=== PATIENT | male | born 1965 | race African-American/Black ===

== ENCOUNTER 2016-10-05 11:59 | Inpatient (IN) | payer OTHER ==
[2016-10-05 21:19] VITALS: BMI 22.5
--- NOTE | 2016-10-05 21:27 | HP ---
COWS - Scale Resting Pulse: 0= [place] 80 or Below Sweatin= Chills/Flushing Restless Observation: 1= Difficult to Sit Still Pupil Size: 1= Pupils >than Normal Bone or Joint Aches: 4=Acute Joint/Muscle Pain Runny Nose/ Eye Tearin= Runny Nose/Eyes GI Upset > 30mins: 3= Vomiting/Diarrhea Tremor Observation: 2= Slight Tremor Visible Yawning Observation: 2= >3x During Session Anxiety or Irritability: 1=Feels Anxious/Irritable Goose Flesh Skin: 0=Smooth Skin COWS Score: 17 Admission ROS S - HPI Chief Complaint: C/O HEROIN AND COCAINE DEPENDENCE. SEEKING DETOX TXMENT. Allergies/Adverse Reactions: Allergies Allergy/AdvReac Type Severity Reaction Status Date / Time No Known Allergies Allergy Verified 10/05/16 21:22 History of Present Illness: 51 Y.O. MALE WITH OPIOID AND COCAINE DEPENDENCE ADMITTED FOR DETOX TXMENT. THIS IS CLIENT FIRST TIME HERE. REPORTS LAST DETOX OVER 90 DAYS. LONGEST CLEAN TIME 3 YEARS. Exam Limitations: No Limitations - Ebola screening Have you traveled outside of the country in the last 21 days: No Have you had contact with anyone from an Ebola affected area: No Have you been sick,other than usual withdrawal symptoms: No - Review of Systems Constitutional: Chills, Malaise, Changes in sleep EENT: reports: Nose Congestion, Dental Problems (DENTURES UPPER/LOWER) Respiratory: reports: No Symptoms reported Cardiac: reports: No Symptoms Reported GI: reports: Poor Fluid Intake, Vomiting : reports: No Symptoms Reported Musculoskeletal: reports: Joint Pain Integumentary: reports: No Symptoms Reported Neuro: reports: No Symptoms reported Endocrine: reports: No Symptoms Reported Hematology: reports: No Symptoms Reported Psychiatric: reports: No Sypmtoms Reported Other Systems: Reviewed and Negative Patient History - Patient Medical History Hx Anemia: No Hx Asthma: No Hx Chronic Obstructive Pulmonary Disease (COPD): No Hx Cardiac Disorders: No Hx Congestive Heart Failure: No Hx Hypertension: No Hx Hypercholesterolemia: No Hx Pacemaker: No HX Cerebrovascular Accident: No Hx Seizures: No Hx Dementia: No Hx Diabetes: No Hx Gastrointestinal Disorders: No Hx Liver Disease: No Hx Genitourinary Disorders: No Hx Sexually Transmitted Disorders: No Hx Renal Disease (ESRD): No Hx Thyroid Disease: No Hx Human Immunodeficiency Virus (HIV): No Hx Hepatitis C: No Hx Depression: No (H/O NO MEDS) Hx Suicide Attempt: No Hx Bipolar Disorder: No Hx Schizophrenia: No Other Medical History: DENIES - Patient Surgical History Past Surgical History: No - PPD History Previous Implant?: Yes Documented Results: Negative w/o proof Implanted On Prior [facility] Admission?: No PPD to be Administered?: Yes - Smoking Cessation Smoking history: Current every day smoker Have you smoked in the past 12 months: Yes Aproximately how many cigarettes per day: 10 Cigars Per Day: 0 Hx Chewing Tobacco Use: No Initiated information on smoking cessation: Yes 'Breaking Loose' booklet given: 10/05/16 - Substance & Tx. History Hx Alcohol Use: No Hx Substance Use: Yes Substance Use Type: Cocaine, Heroin Hx Substance Use Treatment: Yes ([facility]) - Substances Abused HEROIN Route: Inhalation Frequency: 3-6 times per week Amount used: 3 BAGS Age of first use: 48 Date of Last Use: 10/05/16 COCAINE Route: Inhalation Frequency: Daily Amount used: 1/2 GM Age of first use: 23 Date of Last Use: 10/04/16 Family Disease History - Family Disease History Family History: Denies Admission Physical Exam [facility] - Vital Signs Vital Signs: Vital Signs - 24 hr 10/05/16 21:17 Temperature 98.1 F Pulse Rate 66 Respiratory 20 Rate Blood Pressure 141/85 - Physical General Appearance: Yes: Appropriately Dressed, Mild Distress, Tremorous, Other (SOILED CLOTHING) HEENTM: Yes: EOMI, Normocephalic, Normal Voice, MICHELET, Pharynx Normal, Rhinorrhea , Other (UPPER/LOWER DENTURES) Respiratory: Yes: Chest Non-Tender, Lungs Clear, Normal Breath Sounds, No Respiratory Distress, No Accessory Muscle Use Neck: Yes: No masses,lesions,Nodules, Supple, Trachea in good position Breast: Yes: Breast Exam Deferred Cardiology: Yes: Regular Rhythm, Regular Rate, S1, S2 Abdominal: Yes: Normal Bowel Sounds, Non Tender, Soft Genitourinary: Yes: Within Normal Limits Back: Yes: Normal Inspection Musculoskeletal: Yes: full range of Motion, Gait Steady Extremities: Yes: Normal Capillary Refill, Normal Range of Motion, Non-Tender, Tremors 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: Yes: 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 intact, Fully Oriented, Alert, Motor Strength 5/5 Integumentary: Yes: Within Normal Limits Lymphatic: Yes: Within Normal Limits - Diagnostic (1) Opioid dependence with withdrawal Current Visit: Yes Status: Chronic (2) Cocaine dependence, uncomplicated Current Visit: Yes Status: Chronic (3) Nicotine dependence Current Visit: Yes Status: Chronic Qualifiers: Nicotine product type: cigarettes Substance use status: uncomplicated Qualified Code(s): F17.210 - Nicotine dependence, cigarettes, uncomplicated Cleared for Admission S - Detox or Rehab [facility] Level of Care: Medically Managed Detox Regimen/Protocol: Methadone Urine Drug Screen - Results Urine Drug Screen Results: REYMUNDO-Cocaine, OPI-Opiates
[2016-10-05] MEDS ORDERED: MAGNESIUM CITRATE 300 ML BOTTLE PO PRN (21:34)
[2016-10-05] MEDS ORDERED: P-EPHED 60MG/TRIPROLIDI 2.5MG TABLET PO PRN (21:34)
[2016-10-05] MEDS ORDERED: MAG HYDROX/AL HYDROX/SIMETH 30 ML UNIT-DOSE CUP PO PRN (21:34)
[2016-10-05] MEDS ORDERED: ACETAMINOPHEN 325 MG TABLET (FP) PO PRN (21:34)
[2016-10-05] MEDS ORDERED: LOPERAMIDE HCL 2 MG CAPSULE PO PRN (21:34)
[2016-10-05] MEDS ORDERED: diphenhydrAMINE HCL 50 MG CAPSULE PO PRN (21:34)
[2016-10-05] MEDS ORDERED: METHADONE HCL 10 MG TABLET (FOR DETOX USE ONLY) PO ONE ×2 (21:34→23:00)
[2016-10-05] MEDS ORDERED: guaiFENesin/D-METHORPHAN HB 10 ML UNIT-DOSE CUPS PO PRN (21:34)
[2016-10-05] MEDS ORDERED: IBUPROFEN 400 MG TABLET (FP) PO PRN (21:34)
[2016-10-05] MEDS ORDERED: MAGNESIUM HYDROX 2400MG/30ML ORAL SUSPENSION 30 ML CUP PO PRN (21:34)
[2016-10-05] MEDS ORDERED: MENTHOL/PHENOL 1 EACH UD MM PRN (21:34)
[2016-10-05] MEDS ORDERED: NICOTINE POLACRILEX 2 MG GUM BC PRN (21:34)
[2016-10-05] MEDS: THIAMINE HCL 100 MG TABLET (FP) PO SCH (22:54)
[2016-10-05] MEDS: diazePAM 5 MG TABLET PO PRN (22:54)
[2016-10-05] MEDS: NICOTINE 14 MG/24 HOURS TOPICAL PATCH TD SCH (22:55)
[2016-10-06] MEDS: diazePAM 5 MG TABLET PO PRN (06:09)
[2016-10-06] MEDS ORDERED: METHADONE HCL 10 MG TABLET (FOR DETOX USE ONLY) PO ONE (10:00)
--- NOTE | 2016-10-06 10:37 | CONSULT ---
[facility] Psychiatric Consult - Data Date of interview: 10/06/16 Admission source: [facility] Identifying data: First admission to [facility] for this 51 y/o AA male seeking detox treatment for heroin and cocaine dependence.Patient is single,a father of two,homeless,unemployed and deprived of financial assistance. Substance Abuse History: - Smoking Cessation. Smoking history: Current every day smoker. Have you smoked in the past 12 months: Yes. Aproximately how many cigarettes per day: 10. Cigars Per Day: 0. Hx Chewing Tobacco Use: No. Initiated information on smoking cessation: Yes. 'Breaking Loose' booklet given : 10/05/16. - Substance & Tx. History. Hx Alcohol Use: No. Hx Substance Use: Yes. Substance Use Type: Cocaine, Heroin. Hx Substance Use Treatment: Yes ( [facility]). - Substances Abused. HEROIN. Route: Inhalation. Frequency : 3-6 times per week. Amount used: 3 BAGS. Age of first use: 48. Date of Last Use: 10/05/16. COCAINE. Route: Inhalation. Frequency: Daily. Amount used: 1/2 GM. Age of first use: 23. Date of Last Use: 10/04/16. Confirmed by patient. Medical History: Patient endorses good general health. Psychiatric History: Patient denies. Physical/Sexual Abuse/Trauma History: Patient denies. Additional Comment: Urine Drug Screen Results: REYMUNDO-Cocaine, OPI-Opiates.Noted. Mental Status Exam - Mental Status Exam Alert and Oriented to: Time, Place, Person Cognitive Function: Grossly Intact Patient Appearance: Disheveled Mood: Withdrawn Affect: Normal Range Patient Behavior: Sedated (light sedation), Fatigued Speech Pattern: Delayed, Slurred Voice Loudness: Moderately Soft/Quiet Thought Process: Goal Oriented Hallucinations: Denies Suicidal Ideation: Denies Homicidal Ideation: Denies Insight/Judgement: Poor Sleep: Well Appetite: Good Muscle strength/Tone: Normal Gait/Station: Normal Psychiatric Findings - Problem List ([place] 1, 2,3) (1) Cocaine dependence, uncomplicated Current Visit: Yes Status: Acute (2) Opioid dependence with withdrawal Current Visit: Yes Status: Acute (3) Nicotine dependence Current Visit: Yes Status: Acute Qualifiers: Nicotine product type: cigarettes Substance use status: uncomplicated Qualified Code(s): F17.210 - Nicotine dependence, cigarettes, uncomplicated - Initial Treatment Plan Initial Treatment Plan: Psychoeducation.Detoxification in progress.Observation.
[2016-10-06 10:42] LABS: MCHC 33.2 g/dl (32.0-35.9); MEAN CELL VOLUME 93.3 fl (80-96); MEAN PLT VOLUME 8.4 fl (7.5-11.1); PLATELET COUNT 305 K/MM3 (134-434); RDW 14.8 % (11.9-15.9); WHITE BLOOD COUNT 8.4 K/mm3 (4.0-10.0)
[2016-10-06] MEDS: NICOTINE 14 MG/24 HOURS TOPICAL PATCH TD SCH (10:50)
[2016-10-06] MEDS: PRENATAL VITAMINS W/ FOLIC ACID TABLET (FP) PO SCH (10:51)
[2016-10-06 10:56] LABS: ALBUMIN 3.3 g/dl (3.4-5.0); BILIRUBIN,TOTAL 0.9 mg/dL (0.2-1.0); COCKROFT - GAULT 56.37; CREATININE 1.4 mg/dL (0.7-1.3); TOT PROT 6.4 g/dl (6.4-8.2)
--- NOTE | 2016-10-06 11:20 | PN ---
S COWS - Scale Resting Pulse: 0= [place] 80 or Below Sweatin= Chills/Flushing Restless Observation: 3= Extraneous Movement Pupil Size: 2= Moderately Dilated Bone or Joint Aches: 2= Severe Diffuse Aches Runny Nose/ Eye Tearin= Nasal Congestion GI Upset > 30mins: 0= None Tremor Observation of Outstretched Hands: 2= Slight Tremor Visible Yawning Observation: 0= None Anxiety or Irritability: 1=Feels Anxious/Irritable Goose Flesh Skin: 0=Smooth Skin COWS Score: 12 BHS Progress Note (SOAP) Subjective: PT IS VERY DROWSY BUT AROUSABLE ON COMMAND. APPEARS VERY TIRED AND STATES "I HAVE NOT BEEN SLEEPING I SHOULD OUTSIDE". BP ELEVATED WITH NO PMHX INDICATED. Objective: 10/06/16 11:20 Laboratory Last Values WBC 8.4 K/mm3 (4.0-10.0) 10/06/16 07:30 RBC 4.97 M/mm3 (4.00-5.60) 10/06/16 07:30 Hgb 15.4 GM/dL (11.7-16.9) 10/06/16 07:30 Hct 46.4 % (35.4-49) 10/06/16 07:30 MCV 93.3 fl (80-96) 10/06/16 07:30 MCHC 33.2 g/dl (32.0-35.9) 10/06/16 07:30 RDW 14.8 % (11.9-15.9) 10/06/16 07:30 Plt Count 305 K/MM3 (134-434) 10/06/16 07:30 MPV 8.4 fl (7.5-11.1) 10/06/16 07:30 Sodium 140 mmol/L (136-145) 10/06/16 07:30 Potassium 4.0 mmol/L (3.5-5.1) 10/06/16 07:30 Chloride 103 mmol/L (98-107) 10/06/16 07:30 Carbon Dioxide 27 mmol/L (21-32) 10/06/16 07:30 Anion Gap 10 (8-16) 10/06/16 07:30 BUN 15 mg/dL (7-18) 10/06/16 07:30 Creatinine 1.4 mg/dL (0.7-1.3) H 10/06/16 07:30 Creat Clearance w eGFR 53.01 (>60) 10/06/16 07:30 Random Glucose 88 mg/dL (74-106) 10/06/16 07:30 Calcium 9.0 mg/dL (8.5-10.1) 10/06/16 07:30 Total Bilirubin 0.9 mg/dL (0.2-1.0) 10/06/16 07:30 AST 19 U/L (15-37) 10/06/16 07:30 ALT 21 U/L (12-78) 10/06/16 07:30 Alkaline Phosphatase 75 U/L (45-117) 10/06/16 07:30 Total Protein 6.4 g/dl (6.4-8.2) 10/06/16 07:30 Albumin 3.3 g/dl (3.4-5.0) L 10/06/16 07:30 OTHER LABS PENDING Assessment: 10/06/16 11:20 WITHDRAWAL SX Plan: CONTINUE DETOX INCREASE PO FLUIDS/ENSURE PLUS PO BID CLONIDINE X 1 MONITOR PT STATUS.
[2016-10-06] MEDS ORDERED: cloNIDine HCL 0.1 MG TABLET PO ONE (11:37)
--- NOTE | 2016-10-06 13:23 | EKG ---
Test Reason : Blood Pressure : / mmHG Vent. Rate : 071 BPM Atrial Rate : 071 BPM P-R Int : 164 ms QRS Dur : 104 ms QT Int : 418 ms P-R-T Axes : 076 078 040 degrees QTc Int : 454 ms NORMAL SINUS RHYTHM BIATRIAL ENLARGEMENT LEFT VENTRICULAR HYPERTROPHY NONSPECIFIC T WAVE ABNORMALITY ABNORMAL ECG NO PREVIOUS ECGS AVAILABLE Confirmed by HAYLEY GONZALES MD ([id number]) on 10/06/2016 1:23:18 PM Referred By: Confirmed By:HAYLEY GONZALES MD
[2016-10-06] MEDS: THIAMINE HCL 100 MG TABLET (FP) PO SCH (22:39)
[2016-10-07] MEDS: diazePAM 5 MG TABLET PO PRN (05:43)
[2016-10-07] MEDS ORDERED: METHADONE HCL 5 MG TABLET (FOR DETOX USE ONLY) PO ONE (10:00)
[2016-10-07] MEDS: PRENATAL VITAMINS W/ FOLIC ACID TABLET (FP) PO SCH (10:26)
[2016-10-07] MEDS: NICOTINE 14 MG/24 HOURS TOPICAL PATCH TD SCH (10:27)
--- NOTE | 2016-10-07 11:33 | PN ---
BHS COWS - Scale Resting Pulse: 0= [place] 80 or Below Sweatin= Chills/Flushing Restless Observation: 3= Extraneous Movement Pupil Size: 2= Moderately Dilated Bone or Joint Aches: 4=Acute Joint/Muscle Pain Runny Nose/ Eye Tearin= Nasal Congestion GI Upset > 30mins: 1= Stomach Cramp Tremor Observation of Outstretched Hands: 1= Tremor [place], Not Seen Yawning Observation: 1= 1-2x During Session Anxiety or Irritability: 2=Irritable/Anxious Goose Flesh Skin: 0=Smooth Skin COWS Score: 16 S Progress Note (SOAP) Subjective: WIDE AWAKE AND ALERT O X 3. EATING BREAKFAST IN BED. ALERT AND INTERACTIVE WITH PEERS TODAY. PT STATES " I DID NOT SLEEP FOR 3 DAYS BEFORE COMING HERE". Objective: 10/07/16 11:31 Vital Signs Temperature 97.5 F L 10/07/16 10:25 Pulse Rate 70 10/07/16 10:25 Respiratory Rate 18 10/07/16 10:25 Blood Pressure 155/98 10/07/16 10:25 O2 Sat by Pulse Oximetry (%) Laboratory Last Values WBC 8.4 K/mm3 (4.0-10.0) 10/06/16 07:30 RBC 4.97 M/mm3 (4.00-5.60) 10/06/16 07:30 Hgb 15.4 GM/dL (11.7-16.9) 10/06/16 07:30 Hct 46.4 % (35.4-49) 10/06/16 07:30 MCV 93.3 fl (80-96) 10/06/16 07:30 MCHC 33.2 g/dl (32.0-35.9) 10/06/16 07:30 RDW 14.8 % (11.9-15.9) 10/06/16 07:30 Plt Count 305 K/MM3 (134-434) 10/06/16 07:30 MPV 8.4 fl (7.5-11.1) 10/06/16 07:30 Sodium 140 mmol/L (136-145) 10/06/16 07:30 Potassium 4.0 mmol/L (3.5-5.1) 10/06/16 07:30 Chloride 103 mmol/L (98-107) 10/06/16 07:30 Carbon Dioxide 27 mmol/L (21-32) 10/06/16 07:30 Anion Gap 10 (8-16) 10/06/16 07:30 BUN 15 mg/dL (7-18) 10/06/16 07:30 Creatinine 1.4 mg/dL (0.7-1.3) H 10/06/16 07:30 Creat Clearance w eGFR 53.01 (>60) 10/06/16 07:30 Random Glucose 88 mg/dL (74-106) 10/06/16 07:30 Calcium 9.0 mg/dL (8.5-10.1) 10/06/16 07:30 Total Bilirubin 0.9 mg/dL (0.2-1.0) 10/06/16 07:30 AST 19 U/L (15-37) 10/06/16 07:30 ALT 21 U/L (12-78) 10/06/16 07:30 Alkaline Phosphatase 75 U/L (45-117) 10/06/16 07:30 Total Protein 6.4 g/dl (6.4-8.2) 10/06/16 07:30 Albumin 3.3 g/dl (3.4-5.0) L 10/06/16 07:30 RPR Titer Nonreactive (NONREACTIVE) 10/06/16 07:30 Hepatitis C Antibody <0.1 s/co ratio (0.0-0.9) 10/06/16 07:30 Assessment: 10/07/16 11:32 WITHDRAWAL SX Plan: CONTINUE DETOX INCREASE PO FLUIDS.
[2016-10-07] MEDS ORDERED: cloNIDine HCL 0.1 MG TABLET PO ONE (11:34)
[2016-10-07] MEDS: THIAMINE HCL 100 MG TABLET (FP) PO SCH (22:58)
[2016-10-07] MEDS: cloNIDine HCL 0.1 MG TABLET PO SCH (22:59)
[2016-10-08] MEDS: diazePAM 5 MG TABLET PO PRN (05:49)
[2016-10-08] MEDS ORDERED: METHADONE HCL 5 MG TABLET (FOR DETOX USE ONLY) PO ONE (10:00)
--- NOTE | 2016-10-08 10:48 | PN ---
BHS Progress Note (SOAP) Subjective: Sweating,interrupted sleep,restless Objective: 10/08/16 10:47 Vital Signs - 8 hr 10/08/16 10/08/16 10/08/16 03:30 06:48 10:46 Temperature 98 F 96.8 F L Pulse Rate 52 L 62 Respiratory 18 18 18 Rate Blood Pressure 134/86 116/79 Laboratory Tests 10/06/16 10/06/16 10/06/16 07:30 07:30 07:30 WBC 8.4 RBC 4.97 Hgb 15.4 Hct 46.4 MCV 93.3 MCHC 33.2 RDW 14.8 Plt Count 305 MPV 8.4 Sodium 140 Potassium 4.0 Chloride 103 Carbon Dioxide 27 Anion Gap 10 BUN 15 Creatinine 1.4 H Creat Clearance w eGFR 53.01 Random Glucose 88 Calcium 9.0 Total Bilirubin 0.9 AST 19 ALT 21 Alkaline Phosphatase 75 Total Protein 6.4 Albumin 3.3 L RPR Titer Hepatitis C Antibody <0.1 10/06/16 07:30 WBC RBC Hgb Hct MCV MCHC RDW Plt Count MPV Sodium Potassium Chloride Carbon Dioxide Anion Gap BUN Creatinine Creat Clearance w eGFR Random Glucose Calcium Total Bilirubin AST ALT Alkaline Phosphatase Total Protein Albumin RPR Titer Nonreactive Hepatitis C Antibody labs noted Assessment: 10/08/16 10:47 Withdrawal sx. Plan: Continue detox
[2016-10-08] MEDS: PRENATAL VITAMINS W/ FOLIC ACID TABLET (FP) PO SCH (10:49)
[2016-10-08] MEDS: cloNIDine HCL 0.1 MG TABLET PO SCH ×2 (10:50→22:52)
[2016-10-08] MEDS: NICOTINE 14 MG/24 HOURS TOPICAL PATCH TD SCH (10:50)
[2016-10-08] MEDS: THIAMINE HCL 100 MG TABLET (FP) PO SCH (22:51)
[2016-10-09] MEDS ORDERED: METHADONE HCL 10 MG TABLET (FOR DETOX USE ONLY) PO ONE (10:00)
[2016-10-09] MEDS: PRENATAL VITAMINS W/ FOLIC ACID TABLET (FP) PO SCH (10:41)
[2016-10-09] MEDS: NICOTINE 14 MG/24 HOURS TOPICAL PATCH TD SCH (10:41)
[2016-10-09] MEDS: cloNIDine HCL 0.1 MG TABLET PO SCH ×3 (10:42→22:47)
--- NOTE | 2016-10-09 18:08 | PN ---
S Progress Note (SOAP) Subjective: Fatigue, Tremors. Objective: PT. A & O X 2 (DISORIENTED ABOUT DAY / DATE). PT. DENIES CHEST PAIN. 10/09/16 18:04 Vital Signs Temperature 98.6 F 10/09/16 11:14 Pulse Rate 61 10/09/16 11:14 Respiratory Rate 20 10/09/16 11:14 Blood Pressure 119/79 10/09/16 11:14 O2 Sat by Pulse Oximetry (%) Laboratory Last Values WBC 8.4 K/mm3 (4.0-10.0) 10/06/16 07:30 RBC 4.97 M/mm3 (4.00-5.60) 10/06/16 07:30 Hgb 15.4 GM/dL (11.7-16.9) 10/06/16 07:30 Hct 46.4 % (35.4-49) 10/06/16 07:30 MCV 93.3 fl (80-96) 10/06/16 07:30 MCHC 33.2 g/dl (32.0-35.9) 10/06/16 07:30 RDW 14.8 % (11.9-15.9) 10/06/16 07:30 Plt Count 305 K/MM3 (134-434) 10/06/16 07:30 MPV 8.4 fl (7.5-11.1) 10/06/16 07:30 Sodium 140 mmol/L (136-145) 10/06/16 07:30 Potassium 4.0 mmol/L (3.5-5.1) 10/06/16 07:30 Chloride 103 mmol/L (98-107) 10/06/16 07:30 Carbon Dioxide 27 mmol/L (21-32) 10/06/16 07:30 Anion Gap 10 (8-16) 10/06/16 07:30 BUN 15 mg/dL (7-18) 10/06/16 07:30 Creatinine 1.4 mg/dL (0.7-1.3) H 10/06/16 07:30 Creat Clearance w eGFR 53.01 (>60) 10/06/16 07:30 Random Glucose 88 mg/dL (74-106) 10/06/16 07:30 Calcium 9.0 mg/dL (8.5-10.1) 10/06/16 07:30 Total Bilirubin 0.9 mg/dL (0.2-1.0) 10/06/16 07:30 AST 19 U/L (15-37) 10/06/16 07:30 ALT 21 U/L (12-78) 10/06/16 07:30 Alkaline Phosphatase 75 U/L (45-117) 10/06/16 07:30 Total Protein 6.4 g/dl (6.4-8.2) 10/06/16 07:30 Albumin 3.3 g/dl (3.4-5.0) L 10/06/16 07:30 RPR Titer Nonreactive (NONREACTIVE) 10/06/16 07:30 Hepatitis C Antibody <0.1 s/co ratio (0.0-0.9) 10/06/16 07:30 LABS NOTED. 10/09/16 18:07 Assessment: 10/09/16 18:08 WITHDRAWAL SYMPTOMS. Plan: CONTINUE DETOX. ADVISED PATIENT TO FOLLOW-UP WITH [facility] PROVIDER AFTER DISCHARGE FROM DETOX FOR GENERAL MEDICAL ASSESSMENT AND FOR ABNORMAL ADMISSION LAB VALUES.
[2016-10-09] MEDS: THIAMINE HCL 100 MG TABLET (FP) PO SCH (22:47)
[2016-10-10] MEDS ORDERED: METHADONE HCL 5 MG TABLET (FOR DETOX USE ONLY) PO ONE (06:00)
[2016-10-10 06:51] VITALS: BP 133/84; PULSE 54; TEMP 97.5
[2016-10-10] MEDS: PRENATAL VITAMINS W/ FOLIC ACID TABLET (FP) PO SCH (09:57)
[2016-10-10 10:25] LABS: URINE APPEARANCE CLEAR; URINE BILIRUBIN NEGATIVE (NEGATIVE); URINE BLOOD NEGATIVE (NEGATIVE); URINE COLOR STRAW; URINE GLUCOSE (UA) NEGATIVE (NEGATIVE); URINE KETONE NEGATIVE (NEGATIVE); URINE LEUK ESTERASE NEGATIVE (NEGATIVE); URINE NITRITE NEGATIVE (NEGATIVE); URINE PROTEIN NEGATIVE (NEGATIVE); URINE UROBILINOGEN NEGATIVE E.U./dl (0.2-1.0)
--- NOTE | 2016-10-10 12:12 | DS ---
[facility] Detox Discharge Summary Admission Date: 10/05/16 Discharge Date: 10/10/16 - History Present History: Cocaine Dependence, Opioid Dependence Pertinent Past History: Denies - Physical Exam Results Vital Signs: Vital Signs Temperature 97.5 F L 10/10/16 06:51 Pulse Rate 54 L 10/10/16 06:51 Respiratory Rate 18 10/10/16 06:51 Blood Pressure 133/84 10/10/16 06:51 O2 Sat by Pulse Oximetry (%) Pertinent Admission Physical Exam Findings: Withdrawal symptoms Laboratory Tests 10/06/16 10/06/16 10/06/16 07:30 07:30 07:30 WBC 8.4 RBC 4.97 Hgb 15.4 Hct 46.4 MCV 93.3 MCHC 33.2 RDW 14.8 Plt Count 305 MPV 8.4 Sodium 140 Potassium 4.0 Chloride 103 Carbon Dioxide 27 Anion Gap 10 BUN 15 Creatinine 1.4 H Creat Clearance w eGFR 53.01 Random Glucose 88 Calcium 9.0 Total Bilirubin 0.9 AST 19 ALT 21 Alkaline Phosphatase 75 Total Protein 6.4 Albumin 3.3 L Urine Color Urine Appearance Urine pH Urine Protein Urine Glucose (UA) Urine Ketones Urine Blood Urine Nitrite Urine Bilirubin Urine Urobilinogen Ur Leukocyte Esterase RPR Titer Hepatitis C Antibody <0.1 10/06/16 10/06/16 07:30 08:40 WBC RBC Hgb Hct MCV MCHC RDW Plt Count MPV Sodium Potassium Chloride Carbon Dioxide Anion Gap BUN Creatinine Creat Clearance w eGFR Random Glucose Calcium Total Bilirubin AST ALT Alkaline Phosphatase Total Protein Albumin Urine Color Straw Urine Appearance Clear Urine pH 7.0 Urine Protein Negative Urine Glucose (UA) Negative Urine Ketones Negative Urine Blood Negative Urine Nitrite Negative Urine Bilirubin Negative Urine Urobilinogen Negative Ur Leukocyte Esterase Negative RPR Titer Nonreactive Hepatitis C Antibody Labs noted - Treatment Hospital Course: Detox Protocol Followed, Detoxed Safely, Responded well, Discharged Condition Good - Medication Discharge Medications: Ambulatory Orders NK [No Known Home Medication] 10/05/16 - Diagnosis (1) Cocaine dependence, uncomplicated Status: Chronic (2) Nicotine dependence Status: Chronic Qualifiers: Nicotine product type: cigarettes Substance use status: uncomplicated Qualified Code(s): F17.210 - Nicotine dependence, cigarettes, uncomplicated (3) Opioid dependence with withdrawal Status: Acute - AMA Did Patient Leave Against Medical Advice: No
== END 2016-10-10 10:12 | disposition home or self-care (01) | DRG 773 ==
LOC: YASAS 11:59 → Y3N 21:55
PROVIDERS: ADMIT Internal Medicine; ATTEND Internal Medicine
PROC: HZ2ZZZZ Detoxification Services for Substance Abuse Treatment (ICD-10-PCS; principal; 2016-10-05)
DX: F11.23 Opioid dependence with withdrawal (principal); F14.20 Cocaine dependence, uncomplicated; F17.210 Nicotine dependence, cigarettes, uncomplicated
CPT/HCPCS: 36415; 80053; 81003; 85027; 86593; 93005; 93010

== ENCOUNTER 2024-11-02 14:07 | Inpatient (IN) | payer OTHER ==
[2024-11-02 14:57] VITALS: BMI 19.1
[2024-11-02] MEDS ORDERED: ACETAMINOPHEN 325 MG TABLET (FP) PO PRN (15:27)
[2024-11-02] MEDS ORDERED: IBUPROFEN 400 MG TABLET (FP) PO PRN (15:27)
[2024-11-02] MEDS ORDERED: MAG HYDROX/AL HYDROX/SIMETH 30 ML UNIT-DOSE CUP PO PRN (15:27)
[2024-11-02] MEDS ORDERED: guaiFENesin 600 MG TABLET.ER (FP) PO PRN (15:27)
[2024-11-02] MEDS ORDERED: NALOXONE (NARCAN) HCL 4 MG/0.1 ML SPRAY NS PRN (15:27)
[2024-11-02] MEDS ORDERED: POLYETHYLENE GLYCOL (HEALTHYLAX) 3350 17 GM PACKET PO PRN (15:27)
[2024-11-02] MEDS ORDERED: BENZONATATE 200 MG CAPSULE PO PRN (15:27)
[2024-11-02] MEDS ORDERED: hydrOXYzine PAMOATE 25 MG CAPSULE (FP) PO PRN (15:27)
[2024-11-02] MEDS ORDERED: MAGNESIUM HYDROX 2400MG/30ML ORAL SUSPENSION 30 ML CUP PO PRN (15:27)
[2024-11-02] MEDS ORDERED: BENZOCAINE/MENTHOL (CHLORASEPTIC ) LOZENGE MM PRN (15:27)
[2024-11-02] MEDS ORDERED: NICOTINE 14 MG/24 HOURS TOPICAL PATCH TD ONE (16:58)
[2024-11-02] MEDS ORDERED: PRENATAL VITAMINS W/ FOLIC ACID TABLET (FP) PO ONE (16:58)
[2024-11-02] MEDS: PRENATAL VITAMINS W/ FOLIC ACID TABLET (FP) PO SCH (17:02)
[2024-11-02] MEDS: NICOTINE 14 MG/24 HOURS TOPICAL PATCH TD SCH (17:03)
[2024-11-02] MEDS ORDERED: TUBERCULIN PPD 5 TU/0.1ML VIAL ID ONE ×2 (18:29→20:16)
[2024-11-02] MEDS: THIAMINE 100 MG TABLET PO SCH (21:28)
[2024-11-02] MEDS: MELATONIN 5 MG TABLETS PO SCH (21:28)
[2024-11-03] MEDS: LOPERAMIDE HCL 2 MG CAPSULE PO PRN (02:38)
[2024-11-03 10:09] LABS: HEMATOCRIT 47.1 % (40.1-51.0); HEMOGLOBIN 15.4 g/dL (13.7-17.5); MCHC 32.7 g/dl (32.3-36.5); MEAN CELL VOLUME 93.8 fl (79.0-92.2); MEAN PLT VOLUME 10.6 fl (9.4-12.4); PLATELET COUNT 327 x10^3/uL (163-337); RDW 15.1 % (12.2-16.4)
[2024-11-03 10:50] LABS: CHLORIDE 106 mmol/L (98-107); POTASSIUM 4.8 mmol/L (3.5-5.1); SODIUM 137 mmol/L (136-145)
[2024-11-03 10:56] LABS: ALBUMIN 3.4 g/dl (3.4-5.0); ANION GAP 6 mmol/L (4-13); BLOOD UREA NITROGEN 38.5 mg/dL (7-18); CALCIUM 9.9 mg/dL (8.5-10.1); CO2 26 mmol/L (21-32); GLUCOSE,RANDOM 115 mg/dL (74-106)
[2024-11-03] MEDS: amLODIPine BESYLATE 10 MG TABLET (FP) PO SCH (10:56)
[2024-11-03 10:59] LABS: CREATININE 1.7 mg/dL (0.55-1.3); SGOT/AST 28 U/L (15-37); SGPT/ALT 47 U/L (13-61)
[2024-11-03 11:00] LABS: BILIRUBIN,TOTAL 0.4 mg/dL (0.2-1); TOT PROT 6.9 g/dl (6.4-8.2)
[2024-11-03 11:01] LABS: ALK PHOS 107 U/L (45-117)
[2024-11-03 11:22] LABS: SYPHILIS W/ RPR CONF NON-REACTIVE (NONREACTIVE)
[2024-11-03 11:50] LABS: HCV DIAGNOSTIC IN-HOUSE W/RFLX NON-REACTIVE (NONREACTIVE)
[2024-11-03] MEDS: BUPRENORPHINE/NALOXONE 8 MG/2 MG FILM PACKET SL SCH (15:33)
[2024-11-03 17:25] LABS: EPI CELLS 3 /uL (0-25.1); HYALINE CASTS 1 /uL (0-3.1); URINE APPEARANCE CLEAR; URINE BACTERIA 3 /uL (0-1359); URINE BILIRUBIN NEGATIVE (NEGATIVE); URINE COLOR YELLOW; URINE GLUCOSE (UA) NEGATIVE (NEGATIVE); URINE KETONE NEGATIVE (NEGATIVE); URINE LEUK ESTERASE NEGATIVE (NEGATIVE); URINE NITRITE NEGATIVE (NEGATIVE); URINE PROTEIN 2+ (NEGATIVE); URINE RBC 9 /uL (0-23.9); URINE UROBILINOGEN 0.2 mg/dL (0.2-1.0); URINE WBC 2 /uL (0-25.8)
[2024-11-06 11:53] LABS: MCHC 32.9 g/dl (32.3-36.5)
[2024-11-06 11:55] LABS: HEMATOCRIT 44.4 % (40.1-51.0); HEMOGLOBIN 14.6 g/dL (13.7-17.5); MEAN CELL VOLUME 94.3 fl (79.0-92.2); MEAN PLT VOLUME 9.8 fl (9.4-12.4); PLATELET COUNT 391 x10^3/uL (163-337); RDW 15.2 % (12.2-16.4)
[2024-11-06] MEDS: RIFAXIMIN 550 MG TABLET PO SCH (16:00)
[2024-11-06] MEDS: AZITHROMYCIN 250 MG TABLET PO ONE (16:58)
[2024-11-07] MEDS: AZITHROMYCIN 250 MG TABLET PO SCH (09:45)
[2024-11-14] MEDS ORDERED: ACETAMINOPHEN 325 MG TABLET (FP) PO PRN (10:03)
[2024-11-14] MEDS ORDERED: LISINOPRIL 10 MG TABLET PO SCH (10:15)
[2024-11-14] MEDS: LISINOPRIL 20 MG TABLET PO SCH (11:05)
[2024-11-14] MEDS: MIRTAZAPINE 15 MG TABLET (FP) PO SCH (21:34)
[2024-11-18] MEDS: IBUPROFEN 600 MG TABLET (FP) PO PRN (07:38)
[2024-11-19] MEDS ORDERED: METHOCARBAMOL 500 MG TABLET PO PRN (13:58)
[2024-11-23 06:52] VITALS: RESP 17; TEMP 97.5
[2024-11-23 10:28] VITALS: BP 142/72; PULSE 108
== END 2024-11-23 10:55 | disposition home or self-care (01) | DRG 772 ==
LOC: YASAS 14:07 → Y5N 17:24
PROVIDERS: ADMIT Psychiatry & Neurology Pain Medicine; ATTEND Psychiatry & Neurology Pain Medicine
PROC: HZ42ZZZ Group Counseling for Substance Abuse Treatment, Cognitive-Behavioral (ICD-10-PCS; principal; 2024-11-02)
DX: F14.20 Cocaine dependence, uncomplicated (principal); F11.20 Opioid dependence, uncomplicated; F17.210 Nicotine dependence, cigarettes, uncomplicated; F43.10 Post-traumatic stress disorder, unspecified; F32.A Depression, unspecified; E78.5 Hyperlipidemia, unspecified; I10 Essential (primary) hypertension; K21.9 Gastro-esophageal reflux disease without esophagitis; R19.7 Diarrhea, unspecified
CPT/HCPCS: 36415; 80053; 80305; 80307; 81003; 82962; 85025; 85027; 86780; 86803; 87811; 93005; 93010